=== PATIENT | female | born 1945 | race African-American/Black ===

== ENCOUNTER 2017-06-28 12:28 | Emergency (ER) | payer MEDICARE, MEDICAID ==
[~2017-06-28] VITALS: Ht 167.6 cm; Wt 93.0 kg
[~2017-06-28 12:28] MED LIST: ACET-3161 PO; ASPI-785 PO; BUSP5TAB3 PO; DILT180C3 PO; DOCU250C14 PO; DOXA2TAB PO; DULO60CA44 PO; HYDR25TA PO; LEVO75CA2 PO; LISI-604 PO; LORA-986 PO; MECL-111 PO; METF500T PO; OMEP40CA34 PO; PRAV20TA57 PO; PROT40 PO; SITA100T6 PO; SUCR1TAB PO; TEMA30CA PO
[2017-06-28] MEDS ORDERED: PREDNISONE 20MG TABLET PO STA (12:44)
[2017-06-28] MEDS ORDERED: IPRATROPIUM BROMIDE (0.02%) 0.5MG/2.5ML NEB HHN STA (12:44)
[2017-06-28] MEDS ORDERED: AZITHROMYCIN 500 MG TABLET PO STA (12:44)
[2017-06-28] MEDS ORDERED: ALBUTEROL (0.083%) 2.5MG/3ML NEB HHN STA (12:44)
[2017-06-28] MEDS ORDERED: ASPIRIN 81MG TABLET PO STA (13:10)
[2017-06-28 13:30] LABS: HEMATOCRIT. 28.7 % (36.0-48.0); HEMOGLOBIN. 9.8 g/dL (12.0-16.0); MEAN CORPUSCULAR HEMOGLOBIN 31.1 pg (28.0-32.0); MEAN PLATELET VOLUME 7.8 fl (7.4-10.4); PLATELET 167 x1000/uL (130-400); RED BLOOD CELL COUNT 3.15 mill/uL (4.2-5.4); RED CELL DISTRIBUTION WIDTH 13.2 % (11.6-14.6)
[2017-06-28 13:39] LABS: INR 1.1; PARTIAL THROMBOPLASTIN TIME 24.5 sec (24.0-34.0); PROTHROMBIN TIME 11.9 sec
[2017-06-28 13:48] LABS: CARBON DIOXIDE 26 mEq/L (21-32); CHLORIDE 108 mEq/L (98-107); TROPONIN I < 0.02 ng/mL (0.00-0.04)
[2017-06-28 14:13] LABS: PLATELET ESTIMATE NORMAL
[2017-06-28] MEDS ORDERED: MAGNESIUM 2 G PREMIX 50 ML IV ONE (14:15)
[2017-06-28 14:48] VITALS: BP 143/76
== END 2017-06-28 16:30 | disposition home or self-care (01) ==
LOC: ER 13:05
DX: J44.1 Chronic obstructive pulmonary disease with (acute) exacerbation (principal); D64.9 Anemia, unspecified; R51 Headache; R68.2 Dry mouth, unspecified
CPT/HCPCS: 36415; 71010; 80053; 83690; 84484; 85025; 85610; 85730; 87040; 93005; 94640; 96365; 99285; J3475; J7512; J7611

== ENCOUNTER 2017-10-29 04:02 | Emergency (ER) | payer MEDICARE, MEDICAID ==
[~2017-10-29] VITALS: Ht 165.1 cm; Wt 77.0 kg
[~2017-10-29 04:02] MED LIST changes: +SITA100T11 PO; -SITA100T6 PO
[2017-10-29] MEDS ORDERED: KETOROLAC 60MG/2ML VIAL IM ONE (05:15)
[2017-10-29 08:30] VITALS: BP 133/66
== END 2017-10-29 08:51 | disposition home or self-care (01) ==
LOC: ER 04:05
DX: M54.89 Other dorsalgia (principal); J44.9 Chronic obstructive pulmonary disease, unspecified; I50.9 Heart failure, unspecified; Z79.82 Long term (current) use of aspirin; Z87.891 Personal history of nicotine dependence; W01.0XXA Fall on same level from slipping, tripping and stumbling without subsequent striking against object, initial encounter; Y93.89 Activity, other specified; Y92.018 Other place in single-family (private) house as the place of occurrence of the external cause
CPT/HCPCS: 72070; 72100; 72170; 93005; 96372; 99284; J1885

== ENCOUNTER 2018-01-25 11:14 | Emergency (ER) | payer MEDICARE, MEDICAID ==
[~2018-01-25] VITALS: Ht 167.6 cm; Wt 79.0 kg
[2018-01-25 11:30] VITALS: BP 134/75
== END 2018-01-25 20:55 | disposition left against medical advice (07) ==
LOC: ER 12:29
DX: R51 Headache (principal); Z53.21 Procedure and treatment not carried out due to patient leaving prior to being seen by health care provider
CPT/HCPCS: 93005

== ENCOUNTER 2018-01-26 01:19 | Emergency (ER) | payer MEDICARE, MEDICAID ==
[~2018-01-26] VITALS: Ht 170.2 cm; Wt 77.4 kg
[2018-01-26] MEDS ORDERED: KETOROLAC 15MG/ML VIAL IV ONE (03:45)
[2018-01-26 06:49] VITALS: BP 128/86
== END 2018-01-26 06:50 | disposition home or self-care (01) ==
LOC: ER 01:19
DX: J44.9 Chronic obstructive pulmonary disease, unspecified (principal); R07.81 Pleurodynia; I50.9 Heart failure, unspecified; M19.90 Unspecified osteoarthritis, unspecified site; Z79.82 Long term (current) use of aspirin; V89.2XXA Person injured in unspecified motor-vehicle accident, traffic, initial encounter; Y93.89 Activity, other specified; Y92.410 Unspecified street and highway as the place of occurrence of the external cause; Y99.8 Other external cause status
CPT/HCPCS: 71045; 71120; 93005; 96374; 99284; J1885